=== PATIENT | male | born 1995 | race Caucasian/White ===

== ENCOUNTER 2017-07-14 12:14 | Emergency (ER) | payer BC, OTHER ==
[~2017-07-14] VITALS: Ht 170.2 cm; Wt 72.0 kg
[2017-07-14 12:19] VITALS: Ht 170.2 cm; Wt 72.0 kg
[2017-07-14] MEDS ORDERED: LIDOCAINE 1% (MDV) 20 ML INJ SC ONE (14:00)
[2017-07-14] MEDS ORDERED: IBUP-1542 PO (14:58)
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
== END 2017-07-14 20:36 | disposition left against medical advice (07) ==
LOC: FTE 12:14
DX: S90.852A Superficial foreign body, left foot, initial encounter (principal); J45.909 Unspecified asthma, uncomplicated; S60.812A Abrasion of left wrist, initial encounter; X99.0XXA Assault by sharp glass, initial encounter